=== PATIENT | female | born 1990 ===

== ENCOUNTER 2018-05-09 13:29 | Outpatient (CLI) | payer OTHER ==
--- NOTE | 2018-05-09 17:15 | ULT ---
OB ULTRASOUND: HISTORY: Anatomy. Size and dates evaluation. COMPARISON: None. TECHNIQUE: Sagittal and transverse imaging of the gravid uterus is performed. FINDINGS: The cervix is closed and measures approximately 8 cm. The placenta does appear to be low lying. The placenta is anterior in location. There is a 2 cm bernardino cental [place]. position is vertex. There are heart tones with a rate of 149 beats per minute. BIOMETRY: BPD: 4.70 cm (20 weeks 2 days). HEAD CIRCUMFERENCE: 16.96 cm (19 weeks 5 days). ABDOMINAL CIRCUMFERENCE: 14.17 cm (19 weeks 4 days). FEMUR LENGTH: 3.33 cm (20 weeks 3 days). AVERAGE AGE BY SONOGRAPHY: 20 weeks 0 days. ESTIMATED WEIGHT: 321 g. AMNIOTIC FLUID INDEX: 16.56 cm. SURVEY: The lateral ventricles, the cerebellum, the three-vessel cord, the cord insertion, the urinary bladde r, the nose and lips, the stomach, the extremities, and the sagittal and transverse spine have a norm al appearance. There is a four-chamber heart with an echogenicity focus. IMPRESSION: 1. Single intrauterine gestation. Average age by sonography is 20 weeks 0 days. 2. heart tones with a rate of 149 beats per minute. 3. Echogenic focus in the ventricles. Calcification of the chordae tendineae cannot be excluded. 4. High risk ultrasound with Maternal Medicine consultation is recommended. CODE T POS: [facility]
== END 2018-05-09 13:30 | disposition home or self-care (01) ==
LOC: BICULT 13:29
PROVIDERS: ATTEND Family Medicine
DX: Z34.02 Encounter for supervision of normal first pregnancy, second trimester (principal); Z3A.20 20 weeks gestation of pregnancy
CPT/HCPCS: 76805